=== PATIENT | female | born 1950 | race Caucasian/White ===

== ENCOUNTER → 2017-01-24 | Outpatient (CLI) | payer MEDICARE, OTHER ==
--- NOTE | 2017-01-24 11:46 | Diagnostic Imaging Report ---
PROCEDURE: US Gallbladder. TECHNIQUE: Multiple real-time grayscale images were obtained over the right upper quadrant in various projections. INDICATION: Bloating. FINDINGS: The pancreas visualized portions appear unremarkable. The liver is fairly homogeneous with no focal lesion. The left hepatic lobe, however, is obscured by bowel gas. The CBD is also obscured. Hepatopedal flow in the portal vein is seen. The gallbladder demonstrates no stones or wall thickening. No pericholecystic fluid. Sonographic Quintana sign is reportedly negative. The right kidney is 10.4 CM in length with no hydronephrosis or focal lesion. IMPRESSION: No gallstones or evidence of cholecystitis. Dictated by: Dictated on workstation # [id number]
== END ==
LOC: RAD 07:32
PROVIDERS: ATTEND Surgery
DX: R14.0 Abdominal distension (gaseous) (principal)
CPT/HCPCS: 76705

== ENCOUNTER → 2017-02-05 | Outpatient (CLI) | payer MEDICARE, OTHER ==
[~2017-02-05] MED LIST: CATHETER FLUSH 10 ML SYR IV PRN
--- NOTE | 2017-02-05 11:51 | Diagnostic Imaging Report ---
EXAMINATION: HIDA with EF measurements Indication: Abdominal pain TECHNIQUE: After the intravenous administration of 5.5 mCi of Tc 99m Choletec, imaging over the abdomen was obtained. This was followed by administration of Ensure orally to stimulate intrinsic CCK secretion, followed by continued imaging with ejection fraction measured. FINDINGS: There is homogeneous uptake in the liver with prompt bile duct and gallbladder filling seen. Bowel activity is seen at 10 minutes. Based on further imaging and gallbladder area of interest activity measurements after the administration of Ensure, the gallbladder ejection fraction is estimated at 30%. IMPRESSION: 1. Normal hepatobiliary uptake and Gallbladder filling. 2. Biliary dyskinesia. Low gallbladder ejection fraction. Dictated by: Dictated on workstation # [id number]
== END ==
LOC: CARD 09:17
PROVIDERS: ATTEND Surgery
DX: R14.0 Abdominal distension (gaseous) (principal); R10.10 Upper abdominal pain, unspecified
CPT/HCPCS: 78227

== ENCOUNTER 2017-02-16 05:32 | Outpatient (CLI) | payer MEDICARE, OTHER ==
[~2017-02-16] VITALS: Ht 172.7 cm; Wt 77.1 kg
== END 2017-02-16 11:01 ==
LOC: PREOP 05:32
PROVIDERS: ATTEND Surgery
DX: Z01.818 Encounter for other preprocedural examination (principal); K82.8 Other specified diseases of gallbladder

== ENCOUNTER 2017-10-03 10:03 | Outpatient (RCR) | payer MEDICARE, OTHER ==
[~2017-10-03 10:03] MED LIST changes: +ACHD5005 PO; -CATHETER FLUSH 10 ML SYR IV PRN; +[UNRECOGNIZED DRUG - CODE] PO
== END 2017-10-03 10:59 | disposition home or self-care (01) ==
PROVIDERS: ATTEND Nurse Practitioner Family
DX: M51.36 Other intervertebral disc degeneration, lumbar region (principal)

== ENCOUNTER → 2019-01-14 | Outpatient (CLI) | payer MEDICARE ==
--- NOTE | 2019-01-14 10:30 | Diagnostic Imaging Report ---
INDICATION: Abdominal pain, gas, bloating. Symptoms for a long time but increasing in severity. TECHNIQUE: Supine and upright view of the abdomen 10:13 AM CORRELATION STUDY: None. FINDINGS: Generalized paucity of bowel gas is present. However, no findings to suggest high degree of bowel obstruction. No pathologic intraabdominal calcifications. Asymmetrically elevated right diaphragm. The lung bases appearing unremarkable. Leftward curvature and degenerative changes of the lumbar spine. IMPRESSION: 1. Unremarkable appearing bowel gas pattern demonstrates no findings to suggest obstruction. Dictated by: Dictated on workstation # [id number]
== END ==
LOC: RAD FS 09:50
PROVIDERS: ATTEND Nurse Practitioner
DX: R10.9 Unspecified abdominal pain (principal); R14.0 Abdominal distension (gaseous)
CPT/HCPCS: 74019

== ENCOUNTER → 2019-01-23 | Outpatient (CLI) | payer MEDICARE ==
[~2019-01-23] MED LIST changes: +HOLD METFORMIN - RECEIVED CONTRAST 20 ML VIAL IV SCH
[2019-01-23 08:47] LABS: ALBUMIN 4.2 GM/DL (3.2-4.5); BILIRUBIN,TOTAL 0.7 MG/DL (0.1-1.0); CALCIUM 9.6 MG/DL (8.5-10.1); CREATININE SERUM 1.25 MG/DL (0.60-1.30); POTASSIUM 4.8 MMOL/L (3.6-5.0); TOTAL PROTEIN 7.2 GM/DL (6.4-8.2)
[2019-01-23] MEDS: IOHEXOL 350 MG/ML 100 ML (OMNIPAQUE 350) VIAL IV ONE (09:13)
[2019-01-23] MEDS: NS 100 ML (IVPB) BAG IV ONE (09:13)
[2019-01-23] MEDS: CATHETER FLUSH 10 ML SYR IV PRN (09:13)
--- NOTE | 2019-01-23 09:39 | Diagnostic Imaging Report ---
PROCEDURE: CT abdomen with and without contrast. TECHNIQUE: Multiple contiguous axial CT images of the abdomen were obtained prior to and after intravenous administration of iodinated contrast. Auto Exposure Controls were utilized during the CT exam to meet ALARA standards for radiation dose reduction. INDICATION: Upper abdominal bloating and diarrhea. COMPARISON: No prior studies are available for comparison. FINDINGS: The lung bases are clear. The liver demonstrates generalized low density consistent with hepatic steatosis. No discrete liver mass is identified. Gallbladder appears to be surgically absent. No biliary ductal dilatation is seen. The pancreas and spleen are unremarkable. No adrenal mass is detected. Left kidney contains a cyst extending exophytically from the lower pole measuring approximately 4 cm in diameter. The aorta is non-aneurysmal. No central retroperitoneal or mesenteric lymphadenopathy is detected. The small and large bowel loops are normal in caliber. Occasional diverticuli are present but there is no evidence of acute diverticulitis. There is no free fluid or fluid collection. Bony structures appear nonacute. There appears to be a chronic compression fracture involving approximately T12 vertebral body. IMPRESSION: 1. Hepatic steatosis. 2. Mild uncomplicated diverticulosis. 3. Left renal cyst. 4. No acute feature is identified. Dictated by: Dictated on workstation # [id number]
== END ==
LOC: RAD FS 08:12
PROVIDERS: ATTEND Nurse Practitioner
DX: K76.0 Fatty (change of) liver, not elsewhere classified (principal); K57.90 Diverticulosis of intestine, part unspecified, without perforation or abscess without bleeding; N28.1 Cyst of kidney, acquired; J98.6 Disorders of diaphragm
CPT/HCPCS: 36415; 74170; 80053